=== PATIENT | female | born 2000 | race Caucasian/White ===

== ENCOUNTER 2018-10-13 12:51 | Emergency (ER) | payer OTHER ==
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
[2018-10-13 14:10] VITALS: BP 119/72
--- NOTE | 2018-10-13 14:21 | XRAY Report ---
Reason: finger inj, 4th Procedure Date: 10/13/2018 Accession Number: [id number] / [id number] Procedure: XR - Finger(s) LT CPT Code: FULL RESULT: EXAM: LEFT FOURTH DIGIT RADIOGRAPHY EXAM DATE: 10/13/2018 01:51 PM. CLINICAL HISTORY: Finger inj, 4th. COMPARISON: None. TECHNIQUE: 3 views. FINDINGS: Bones: There is a fracture through the volar aspect fourth middle phalanx base without significant malalignment. No additional fracture identified. Joints: Normal. No subluxation. Soft Tissues: Mild soft tissue swelling. IMPRESSION: Nondisplaced fracture of the fourth middle phalanx base. [facility]
== END 2018-10-13 14:17 | disposition home or self-care (01) ==
LOC: ED 12:51
DX: S62.655A Nondisplaced fracture of middle phalanx of left ring finger, initial encounter for closed fracture (principal); V93.33XA Fall on board other powered watercraft, initial encounter
CPT/HCPCS: 73140; 99282; 99283